=== PATIENT | female | born 1965 | race Caucasian/White ===

== ENCOUNTER 2018-03-25 04:44 | Inpatient (IN) ==
--- NOTE | 2018-03-25 05:09 | ED ---
HPI General Chief complaint: Psychiatric Symptoms Stated complaint: psych screen/POPD Time Seen by Provider: 03/25/18 05:08 History of Present Illness HPI narrative: 52-year-old female presents under Koehler act initiated by the [employer] per the patient reports that she has been feeling depressed and suicidal for "a while" things have been exacerbated by a life stressors. Tonight she was apparently sending test messages to someone saying that she was suicidal. Symptoms are moderate, aggravated by life stressors with no relieving factors. Denies drug or alcohol use, homicidal ideation. She denies doing anything herself today. She reports that she follows with a psychiatrist in [facility]. She has no other complaints. Related Data Home Medications Medication Instructions Recorded Confirmed bupropion HCl [Wellbutrin SR] 300 mg PO DAILY 03/25/18 03/25/18 clonazepam 1 mg PO TID 03/25/18 03/25/18 hydromorphone [Dilaudid] 4 mg PO Q6H PRN 03/25/18 03/25/18 lithium carbonate 100 mg PO QID 03/25/18 03/25/18 quetiapine [Seroquel XR] 150 mg PO HS 03/25/18 03/25/18 Allergies Allergy/AdvReac Type Severity Reaction Status Date / Time *MDRO Multi-Drug Resistant Allergy Unknown Uncoded 07/04/16 12:06 Organism Review of Systems Except as stated in HPI: all other systems reviewed are negative PMFSH Medical History Medical History Chest pain (Acute) Social History Social History Smoking Status: Former smoker Tobacco Type: Cigarettes How Often Do You Have a Drink Containing Alcohol: Monthly or less Recent Travel in [facility] within the Last 8 Weeks: No Recent Out of Country Travel within the Last 8 Weeks: No Exam Narrative Exam Narrative: GENERAL: Well-developed well-nourished female no acute distress SKIN: Warm and dry. HEAD: Atraumatic. Normocephalic. EYES: Pupils equal and round. No scleral icterus. No injection or drainage. ENT: No nasal bleeding or discharge. Mucous membranes pink and moist. NECK: Trachea midline. No JVD. CARDIOVASCULAR: Regular rate and rhythm. No murmur appreciated. RESPIRATORY: No accessory muscle use. Clear to auscultation. Breath sounds equal bilaterally. GASTROINTESTINAL: Abdomen soft, non-tender, nondistended. Hepatic and splenic margins not palpable. MUSCULOSKELETAL: No obvious deformities. No clubbing. No cyanosis. No edema. NEUROLOGICAL: Awake and alert. No obvious cranial nerve deficits. Motor grossly within normal limits. Normal speech. PSYCHIATRIC: Depressed mood; insight and judgment normal. Medical Decision Making MDM Narrative Medical decision making narrative: Mental health screening discussed with the patient. Psychiatric screen ordered. Drug screen is positive for benzodiazepines, the patient is prescribed Klonopin. Otherwise her lab work is unremarkable. She is medically cleared for psychiatric disposition. Differential Diagnosis Differential Diagnosis: Adjustment reaction, substance-induced mood disorder, major depressive disorder, depressive disorder not otherwise specified, bipolar disorder, schizophrenia Lab Data Result diagrams: 03/25/18 05:00 03/25/18 05:00 Lab Results 03/25/18 03/25/18 03/25/18 Range/Units 05:00 05:00 05:00 Sodium 142 (136-145) meq/L Potassium 4.3 (3.5-5.1) meq/L Chloride 110 H (98-107) meq/L Carbon Dioxide 26.8 (21.0-32.0) meq/L Anion Gap 5 (5-15) meq/L BUN 9 (7-18) mg/dL Creatinine 1.21 H (0.50-1.00) mg/dL Estimated GFR 47 L (>89) mL/min Random Glucose 83 (74-106) mg/dL Calcium 8.4 L (8.5-10.1) mg/dL Total Bilirubin 0.4 (0.2-1.0) mg/dL AST 38 H (15-37) U/L ALT 36 (10-53) U/L Alkaline Phosphatase 89 (45-117) U/L Total Protein 8.5 H (6.4-8.2) g/dL Albumin 3.3 L (3.4-5.0) g/dL TSH 2.210 (0.358-3.740) uIU/mL Salicylates 2.6 L (2.8-20.0) mg/dL Urine Opiates Screen (Neg) Acetaminophen Less than 2.0 L (10.0-30.0) mcg/mL Ur Barbiturates Screen (Neg) Ur Amphetamines Screen (Neg) U Benzodiazepines Scrn (Neg) [place] Less than 0.1 L (0.5-1.5) meq/L Urine Cocaine Screen (Neg) U Cannabinoids Screen (Neg) Serum Alcohol Less than 3 (0-5) mg/dL 03/25/18 Range/Units 05:05 Sodium (136-145) meq/L Potassium (3.5-5.1) meq/L Chloride (98-107) meq/L Carbon Dioxide (21.0-32.0) meq/L Anion Gap (5-15) meq/L BUN (7-18) mg/dL Creatinine (0.50-1.00) mg/dL Estimated GFR (>89) mL/min Random Glucose (74-106) mg/dL Calcium (8.5-10.1) mg/dL Total Bilirubin (0.2-1.0) mg/dL AST (15-37) U/L ALT (10-53) U/L Alkaline Phosphatase (45-117) U/L Total Protein (6.4-8.2) g/dL Albumin (3.4-5.0) g/dL TSH (0.358-3.740) uIU/mL Salicylates (2.8-20.0) mg/dL Urine Opiates Screen Neg (Neg) Acetaminophen (10.0-30.0) mcg/mL Ur Barbiturates Screen Neg (Neg) Ur Amphetamines Screen Neg (Neg) U Benzodiazepines Scrn Pos H (Neg) [place] (0.5-1.5) meq/L Urine Cocaine Screen Neg (Neg) U Cannabinoids Screen Neg (Neg) Serum Alcohol (0-5) mg/dL Discharge Plan Discharge Disposition Patient Disposition: 30 Still Patient Discharge Condition Condition: Stable Discharge Details Diagnosis: Encounter for medical clearance for patient hold Physicians Team ED Provider: Olayinka Floyd ED Midlevel Provider: Luis Monge Primary Care Provider: Primary Care Giani,Isabel Rxs /Orders / Referrals /Forms Prescriptions: No Action lithium carbonate 150 mg Capsule 100 mg PO QID RF: 0 clonazepam 1 mg Tablet 1 mg PO TID RF: 0 bupropion HCl [Wellbutrin SR] 200 mg Tablet Extended Release 12 Hr 300 mg PO DAILY RF: 0 quetiapine [Seroquel XR] 150 mg Tablet Extended Release 24 Hr 150 mg PO HS RF: 0 hydromorphone [Dilaudid] 4 mg Tablet 4 mg PO Q6H PRN (Reason: Pain) RF: 0 Status ED Status: Medically Cleared
[2018-03-25 05:37] LABS: Amphetamine Screen,Urine Neg (Neg); Barbiturate Screen,Urine Neg (Neg); Cannabinoid Screen,Urine Neg (Neg); Cocaine Screen,Urine Neg (Neg)
[2018-03-25 05:46] LABS: Opiate Screen,Urine Neg (Neg)
[2018-03-25 05:55] LABS: Alkaline Phosphatase 89 U/L (45-117); Total Protein 8.5 g/dL (6.4-8.2)
[2018-03-25 05:59] LABS: Alanine Aminotransferase 36 U/L (10-53); Albumin 3.3 g/dL (3.4-5.0); Anion Gap 5 meq/L (5-15); Aspartate Aminotransferase 38 U/L (15-37); Blood Urea Nitrogen 9 mg/dL (7-18); Calcium 8.4 mg/dL (8.5-10.1); Carbon Dioxide 26.8 meq/L (21.0-32.0); Chloride 110 meq/L (98-107); Glomerular Filtration Rate 47 mL/min (>89); Glucose,Random 83 mg/dL (74-106); Sodium 142 meq/L (136-145)
[2018-03-25 06:06] LABS: Potassium 4.3 meq/L (3.5-5.1)
[2018-03-25 06:23] LABS: Baso # (Auto) 0.1 th/mm3 (0.0-0.2); Baso % (Auto) 0.6 % (0.0-2.0); Eos # (Auto) 0.1 th/mm3 (0.0-0.4); Eos % (Auto) 1.3 % (0.0-4.0); Hematocrit 46.2 % (35.0-46.0); Lymph # (Auto) 3.4 th/mm3 (1.0-4.8); Lymph % (Auto) 33.5 % (9.0-44.0); Mean Corpuscular HGB Conc 34.6 % (32.0-36.0); Mean Corpuscular Hemoglobin 31.6 pg (27.0-34.0); Mean Corpuscular Volume 91.1 fL (80.0-100.0); Mean Platelet Volume 8.5 fL (7.0-11.0); Mono # (Auto) 0.6 th/mm3 (0.0-0.9); Neut % (Auto) 58.6 % (16.0-70.0); Platelet Count 251 th/mm3 (150-450); Red Blood Count 5.07 mil/mm3 (4.00-5.30); Red Cell Distribution Width 13.9 % (11.6-17.2); White Blood Count 10.2 th/mm3 (4.0-11.0)
[2018-03-25] MEDS ORDERED: LORazepam 1 MG Tablet PO ONE (17:11)
--- NOTE | 2018-03-25 18:02 | ED ---
HPI - Psych - General Source: EMS Mode of arrival: EMS Limitations: no limitations - History of Present Illness MD complaint: suicidal ideation Duration: other (significant other committed suicide yesterday ) Relieving factors: none Exacerbating factors: none - General Chief Complaint: Psychiatric Symptoms Stated Complaint: psych screen/POPD Time Seen by Provider: 03/25/18 05:08 - History of Present Illness HPI Narrative: Patient is a 51-year-old female who is currently on disability, who presents to the emergency room under Sjapper act by [facility]. Koehler act states," Julee called the crisis hotline in has been engaging text messages since 0130 hrs. Julee showed me the text messages that was suicidal and nature stating that she had a plan that she wanted to ." Julee states, " my significant other of 12 years shot himself in the head yesterday, he had problems but I never thought he would take his life." She states that she wants to join him and she has the means to do. She will not contract for safety. 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 She worked for the [employer] for 17 years. She sustained a work injury causing her multiple surgeries to her right leg with 2 plates and 6 screws. In addition she has chronic back pain. Her past medical history includes a myocardial infarction, kidney injury which has been resolved, and orthopedic surgery to her right leg. She is and has 3 grown children. She has 2 girls ages 35 and 23 who both suffer from anxiety and bipolar. She also has a 21-year-old son, and 6 grandchildren. Her mother is and suffered from bipolar and addiction. Her father is and was an alcoholic. She has 2 sisters that are both addicts. Patient has been disabled for 10 years. Patient smokes 1 pack per day , no alcohol and no drugs. Psychiatric: Patient has been diagnosed with panic attacks, anxiety, P PTSD, and ADHD. She is followed by a local psychiatrist Dr. Almaraz. [facility]. She states that she is prescribed Klonopin, Wellbutrin, lithium, 4 mg of Dilaudid, Remeron, and Adderall. Her lithium level from labs drawn today was 0.1. Chart reviewed and discussed with nursing staff. Patient is in room J108 of the emergency department. Patient is in a hospital gown and looks dishevel. She is unconsolable. She is alert and oriented 4. Fund of knowledge is normal. Motor and gait is normal. No abnormal thoughts. Insight and judgment is poor. Remote and recent memory is intact. Speech is low and difficult to hear. Patient endorses suicidal plan. She states that she has the means to hurt herself and she wants to be with her significant other who shot himself in the head. Patient is at moderate risk for self-harm. Patient will not contract for safety. Patient feels that if she is discharged she will take her life. Will admit patient for further assessment and treatment. Dx: Severe Anxiety; Intent to commit suicide (Vivi Richards) - Related Data Home Medications Medication Instructions Recorded Confirmed bupropion HCl [Wellbutrin SR] 300 mg PO DAILY 03/25/18 03/25/18 clonazepam 1 mg PO TID 03/25/18 03/25/18 hydromorphone [Dilaudid] 4 mg PO Q6H PRN 03/25/18 03/25/18 lithium carbonate 100 mg PO QID 03/25/18 03/25/18 quetiapine [Seroquel XR] 150 mg PO HS 03/25/18 03/25/18 Allergies Allergy/AdvReac Type Severity Reaction Status Date / Time *MDRO Multi-Drug Resistant Allergy Unknown Uncoded 07/04/16 12:06 Organism Review of Systems All other systems reviewed negative except as stated in HPI [facility] - History History Provided By: Patient - Medical History Medical History: Medical History (Last Updated 03/25/18 @ 05:12 by Minnie Smiley) Chest pain - Tobacco History Tobacco Use In Past 30 Days: Yes Smoking Status: Refused to answer Tobacco Type: Cigarettes - Alcohol History How Often Do You Have a Drink Containing Alcohol: Unable to Obtain - Substance Use History Substance History: No History of Abuse - Travel History Recent Travel in the [place] Within the Last 8 Weeks: No Recent Travel Out of the Country Within the Last 8 Weeks: No - Immunization History Tetanus Immunization: Unable to Assess Hx Influenza Vaccine This Season: No Psychiatric History - Psychiatric History Psychiatric Treatment History: History of Psychiatric Treatment - Psychiatric History Patient has been under the care of psychiatrist Dr. Rufina macdonald and at the [facility] for psychiatry. She has been diagnosed with PTSD, panic, anxiety, and ADHD. (Vivi Richards) Physical Exam - General Limitations: no limitations General appearance: alert - Head Head exam: atraumatic - Eye Eye exam: Present: normal appearance - ENT ENT exam: Present: normal exam Mental Status Examination Appearance: Disheveled Consciousness: Alert, Other (Unconsolable) Orientation: x4 Motor Activity: Normal gait Speech: Other (Low in tone and volume) Language: Adequate Fund of Knowledge: Adequate Attention and Concentration: Easily distracted Memory: Unremarkable Mood: Sad Affect: Flat, Blunt Thought Process & Associations: Intact Thought Content: Appropriate Hallucination Type: None Delusion Type: None Suicidal Ideation: Yes Suicidal Plan: Yes (Patient significant other committed suicide yesterday by gunshot wound to the head. Patient states that she has the means to take her life.) Suicidal Intention: Yes Homicidal Ideation: No Homicidal Plan: No Homicidal Intention: No Insight: Adequate Judgment: Adequate Initial Documented Vital Signs Temperature 98.4 F 03/25/18 08:20 Pulse Rate 63 03/25/18 08:20 Respiratory Rate 16 03/25/18 08:20 Blood Pressure 137/84 03/25/18 08:20 Pulse Oximetry 98 03/25/18 08:20 Last Documented Vital Signs Temperature 98.4 F 03/25/18 08:20 Pulse Rate 84 03/25/18 15:49 Respiratory Rate 18 03/25/18 15:49 Blood Pressure 141/78 H 03/25/18 15:49 Pulse Oximetry 99 03/25/18 15:49 [facility] - Psych - Diagnosis (1) Severe anxiety Status: Acute (2) Has access to planned means of suicide Status: Acute - Differential Diagnosis Likely: acute anxiety - Medical Records Attestation: I reviewed the patient's medical records. - Lab Data Attestation: I reviewed the patient's lab results. Result diagrams: 03/25/18 05:51 03/25/18 05:00 - 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 Yesterday her significant other of 12 years committed suicide by shooting himself in the head. Patient called the crisis hotline and followed by multiple text messages stating that she was going to take her life. She has a long history of anxiety, panic disorder, PTSD, and ADHD. She is unconsolable in the emergency department. Patient is unwilling to contract for safety. Patient is at moderate risk for self-harm. She endorses plan to do self-harm. Based on the patient's presentation will admit her for further observation and treatment. (Vivi Richards) - Lab Data Lab Results 03/25/18 03/25/18 03/25/18 Range/Units 05:00 05:00 05:00 WBC (4.0-11.0) th/mm3 RBC (4.00-5.30) mil/mm3 Hgb (11.6-15.3) gm/dL Hct (35.0-46.0) % MCV (80.0-100.0) fL MCH (27.0-34.0) pg MCHC (32.0-36.0) % RDW (11.6-17.2) % Plt Count (150-450) th/mm3 MPV (7.0-11.0) fL Neut % (Auto) (16.0-70.0) % Lymph % (Auto) (9.0-44.0) % Emanuel % (Auto) (0.0-8.0) % Eos % (Auto) (0.0-4.0) % Baso % (Auto) (0.0-2.0) % Neut # (Auto) (1.8-7.7) th/mm3 Lymph # (Auto) (1.0-4.8) th/mm3 Emanuel # (Auto) (0.0-0.9) th/mm3 Eos # (Auto) (0.0-0.4) th/mm3 Baso # (Auto) (0.0-0.2) th/mm3 WBC Differential Differential Comment Sodium 142 (136-145) meq/L Potassium 4.3 (3.5-5.1) meq/L Chloride 110 H (98-107) meq/L Carbon Dioxide 26.8 (21.0-32.0) meq/L Anion Gap 5 (5-15) meq/L BUN 9 (7-18) mg/dL Creatinine 1.21 H (0.50-1.00) mg/dL Estimated GFR 47 L (>89) mL/min Random Glucose 83 (74-106) mg/dL Calcium 8.4 L (8.5-10.1) mg/dL Total Bilirubin 0.4 (0.2-1.0) mg/dL AST 38 H (15-37) U/L ALT 36 (10-53) U/L Alkaline Phosphatase 89 (45-117) U/L Total Protein 8.5 H (6.4-8.2) g/dL Albumin 3.3 L (3.4-5.0) g/dL TSH 2.210 (0.358-3.740) uIU/mL Salicylates 2.6 L (2.8-20.0) mg/dL Urine Opiates Screen (Neg) Acetaminophen Less than 2.0 L (10.0-30.0) mcg/mL Ur Barbiturates Screen (Neg) Ur Amphetamines Screen (Neg) U Benzodiazepines Scrn (Neg) [place] Less than 0.1 L (0.5-1.5) meq/L Urine Cocaine Screen (Neg) U Cannabinoids Screen (Neg) Serum Alcohol Less than 3 (0-5) mg/dL 03/25/18 03/25/18 Range/Units 05:05 05:51 WBC 10.2 (4.0-11.0) th/mm3 RBC 5.07 (4.00-5.30) mil/mm3 Hgb 16.0 H (11.6-15.3) gm/dL Hct 46.2 H (35.0-46.0) % MCV 91.1 (80.0-100.0) fL MCH 31.6 (27.0-34.0) pg MCHC 34.6 (32.0-36.0) % RDW 13.9 (11.6-17.2) % Plt Count 251 (150-450) th/mm3 MPV 8.5 (7.0-11.0) fL Neut % (Auto) 58.6 (16.0-70.0) % Lymph % (Auto) 33.5 (9.0-44.0) % Emanuel % (Auto) 6.0 (0.0-8.0) % Eos % (Auto) 1.3 (0.0-4.0) % Baso % (Auto) 0.6 (0.0-2.0) % Neut # (Auto) 6.0 (1.8-7.7) th/mm3 Lymph # (Auto) 3.4 (1.0-4.8) th/mm3 Emanuel # (Auto) 0.6 (0.0-0.9) th/mm3 Eos # (Auto) 0.1 (0.0-0.4) th/mm3 Baso # (Auto) 0.1 (0.0-0.2) th/mm3 WBC Differential . Differential Comment Auto diff final Sodium (136-145) meq/L Potassium (3.5-5.1) meq/L Chloride (98-107) meq/L Carbon Dioxide (21.0-32.0) meq/L Anion Gap (5-15) meq/L BUN (7-18) mg/dL Creatinine (0.50-1.00) mg/dL Estimated GFR (>89) mL/min Random Glucose (74-106) mg/dL Calcium (8.5-10.1) mg/dL Total Bilirubin (0.2-1.0) mg/dL AST (15-37) U/L ALT (10-53) U/L Alkaline Phosphatase (45-117) U/L Total Protein (6.4-8.2) g/dL Albumin (3.4-5.0) g/dL TSH (0.358-3.740) uIU/mL Salicylates (2.8-20.0) mg/dL Urine Opiates Screen Neg (Neg) Acetaminophen (10.0-30.0) mcg/mL Ur Barbiturates Screen Neg (Neg) Ur Amphetamines Screen Neg (Neg) U Benzodiazepines Scrn Pos H (Neg) [place] (0.5-1.5) meq/L Urine Cocaine Screen Neg (Neg) U Cannabinoids Screen Neg (Neg) Serum Alcohol (0-5) mg/dL
[2018-03-25] MEDS ORDERED: Bisacodyl 10 MG Supp RECTAL PRN (18:06)
[2018-03-25] MEDS ORDERED: Mirtazapine 15 MG Tablet PO SCH (21:00)
[2018-03-25] MEDS ORDERED: clonazePAM 1 MG Tablet PO SCH (21:00)
[2018-03-26] MEDS: Senna/Docusate Sodium 8.6/50 MG Tablet PO SCH ×2 (05:28→09:44)
[2018-03-26] MEDS ORDERED: buPROPion 150 MG 12 HR Tablet PO SCH (09:00)
--- NOTE | 2018-03-26 11:01 | P.HPPSY ---
Provisional Diagnosis Admission Date: March 25, 2018 18:06 Ferguson I.: 1. Bipolar disorder, depressed, moderate 2. Rule out benzodiazepine misuse Ferguson II.: 1. Cluster B personality traits Competence Certification of Person's Competence To Provide Express and Informed Consent I have personally examined Julee Alaniz, a person being served at [facility] on, March 26, 2018 1100. Express and informed consent means consent voluntarily given in writing, by a competent person, after sufficient explanation and disclosure of the subject matter involved to enable the person to make a knowing and willful decision without any element of force, fraud, deceit, duress, or other form of constraint or coercion. This person is 18 years of age or older, is not now known to be incompetent to consent to treatment with a guardian advocate, and does not have a health care surrogate or proxy currently making medical treatment decisions. I have found this person to be one of the following: [X] Competent to provide express and informed consent, as defined above, for voluntary admission to this facility and is competent to provide express and informed consent for treatment. He/she has the consistent capacity to make well reasoned, willful, and knowing decisions concerning his or her medical or mental health treatment. The person fully and consistently understands the purpose of the admission for examination/placement and is fully capable of personally exercising all rights assured under [place] [] Incompetent to provide express and informed consent to voluntary admission, and this is incompetent to provide express and informed consent to treatment. The person must be transferred to involuntary status and a petition for a guardian advocate filed with the Circuit Court. [] Refusing to provide express and informed consent to voluntary admission but is competent to provide express and informed consent for treatment. The person must be discharged or transferred to involuntary status. Form shall be completed within 24 hours of a person's arrival at the receiving facility and filed in the clinical record of each person: 1. Admitted on a voluntary basis 2. Permitted to provide express and informed consent to his/her own treatment 3. Allowed to transfer from involuntary to voluntary status 4. Prior to permitting a person to consent to his or her own treatment after having been previously found incompetent to consent to treatment. History of Present Illness Capacity: Has capacity Chief Complaint: Depression, suicidal ideation History of Present Illness: Ms. Friend is a 52-year-old female with a reported history of anxiety, depression, PTSD, ADHD, bipolar disorder who presents under a Koehler act by [employer] alleging that the patient sent text messages of a suicidal nature. Patient was seen by the psychiatric nurse practitioner in the ED. Reviewing the electronic medical record, I see no previous psychiatric contact within our system. Patient seen and examined with nurse, Kasi. Chart reviewed. Case discussed with nursing staff. Per nursing staff, the patient was quite agitated and threatening to armando overnight because she did not receive her reported home dose of Klonopin 1mg TID. I have reviewed the [facility] database, and I note that the patient has been receiving Klonopin 1mg BID. On my examination today, patient starts off our conversation by saying that she gets Klonopin 1mg TID. When I indicate that I have consulted the controlled substances database, she quickly changes her narrative and agrees that she has been taking Klonopin 1mg BID. She denies overuse of this medication. She reports that she has been feeling depressed for several days with suicidal ideation to either overdose or shoot herself with a gun. She says that she has purposely had her firearms removed from the home and also has removed her medications. She notes that she has been off of her psychotropic medications for several weeks. She says that the lithium in particular was problematic because she believes that it was causing weight gain and thyroid abnormalities. She remains depressed now and endorses ongoing suicidal ideations saying that she has "different plans. There is 1,000,001 ways to ." She contracts for safety on the inpatient unit however. She endorses some hopeless and worthless feelings. She does report a significant trauma history and reports that she has heard her name being called in the past and also experiences traumatic nightmares and hypervigilance. No audiovisual hallucinations. No delusions. No hypomanic or manic symptoms presently. Patient does report that she has panic symptoms "all the time" including dyspnea, feeling like she is having a heart attack and feeling like she is going to . She does not presently appear at all anxious. Cluster B personality traits are noted. Remainder of the psychiatric ROS is negative. No acute physical complaints. Past psychiatric history: The patient reports previous diagnoses as noted above. She has been seeing Dr. Shah for several months. She denies any history of psychiatric admissions. Denies any history of suicide attempts. Denies any history of nonsuicidal self-injurious behavior. Denies any history of violent behavior. Family history: The patient reports a family history of anxiety disorder, bipolar disorder and depression. She reports that 2 members of her family have completed suicide. Chemical dependency history: The patient denies any abuse of drugs or alcohol. Social history: The patient reports that she lives alone. She has 3 grown children. She has 6 grandchildren. She is . 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 She denies any legal issues herself. Denies any access to guns or firearms at the present time. She endorses a history of childhood, and police trauma. She endorses yazdanism beliefs. Past medical history: The patient denies any ongoing medical issues. - Inpatient Certification I certify that the inpatient services were ordered in accordance with Medicare regulations governing the order. This includes certification that hospital inpatient services are reasonable and necessary and in the case of services not specified as inpatient-only under 42 CFR 419.22(n), that they are appropriately provided as inpatient services in accordance to with the 2-midnight benchmark under 43 CFR 412.3(e) I certify that inpatient psychiatric hospital services are medically necessary. Evaluation and treatment and/or diagnostic testing are expected to improve the patient's condition. The patient needs on a daily basis, active treatment furnished directly by or requiring the supervision of inpatient psychiatric facility personnel. Estimated Total Length of Stay (Days): 5 Plans for Post Hospital Care: Home Review of Systems All other systems reviewed negative except as stated in HPI [facility] - History History Provided By: Patient, Medical Record - Medical History Medical History: Medical History (Last Updated 03/25/18 @ 05:12 by Minnie Smiley) Chest pain - Tobacco History Second Hand Smoke Exposure: Yes Tobacco Use In Past 30 Days: Yes (PPD) Smoking Status: Current every day smoker Tobacco Type: Cigarettes - Alcohol History How Often Do You Have a Drink Containing Alcohol: Never - Substance Use History Substance History: Past History - Travel History Recent Travel in the [facility] Within the Last 8 Weeks: No Recent Travel Out of the Country Within the Last 8 Weeks: No - Immunization History Tetanus Immunization: <5 Years Hx Influenza Vaccine This Season: Yes Quality Measures - Patient Strengths Patient's strengths (minimum of 2): In a monitored setting. Verbally fluent. Medications and Allergies Active Medications: Active Medications Al Hydrox/Mg Hydrox/Simethicone (Mag-Al Plus Susp Liq) 30 ml PO Q6H PRN PRN Reason: DYSPEPSIA Al Hydroxide/Mg Hydroxide (Milk Of Magnesia Liq) 30 ml PO Q12H PRN PRN Reason: Mild Constipation Bisacodyl (Dulcolax Supp) 10 mg RECTAL DAILY PRN PRN Reason: SEVERE CONSITIPATION Bupropion HCl (Wellbutrin Sr) 300 mg PO DAILY [facility] Last Admin: 03/26/18 09:44 Dose: 300 mg Clonazepam (Klonopin) 1 mg PO [facility] Last Admin: 03/25/18 21:46 Dose: 1 mg Lactulose (Lactulose Liq) 30 ml PO DAILY PRN PRN Reason: SEVERE CONSITIPATION Emery Carbonate (Emery Carbonate) 300 mg PO DAILY [facility] Last Admin: 03/26/18 09:44 Dose: 300 mg Mirtazapine (Remeron) 15 mg PO [facility] Last Admin: 03/25/18 21:46 Dose: 15 mg Senna/Docusate Sodium (Kym-Colace) 1 tab PO BID [facility] Last Admin: 03/26/18 09:44 Dose: Not Given Sennosides (Senokot) 17.2 mg PO Q12H PRN PRN Reason: Moderate Constipation Allergies Allergy/AdvReac Type Severity Reaction Status Date / Time *MDRO Multi-Drug Resistant Allergy Unknown Uncoded 07/04/16 12:06 Organism Home Medications Medication Instructions Recorded Confirmed Type bupropion HCl [Wellbutrin SR] 300 mg PO DAILY 03/25/18 03/25/18 History clonazepam 1 mg PO TID 03/25/18 03/25/18 History hydromorphone [Dilaudid] 4 mg PO Q6H PRN 03/25/18 03/25/18 History lithium carbonate 100 mg PO QID 03/25/18 03/25/18 History quetiapine [Seroquel XR] 150 mg PO HS 03/25/18 03/25/18 History Results - Labs CBC & Chem 7: 03/25/18 05:51 03/26/18 11:03 Labs: Laboratories reviewed. Mild AST elevation noted. Decreased GFR noted. Emery level noted. Toxicology positive for benzos. Exam Vital signs: Vital Signs 03/25/18 15:49 03/26/18 04:49 03/26/18 06:05 Temperature 98.3 F 98.6 F Pulse Rate 84 86 74 Respiratory Rate 18 18 16 Blood Pressure 141/78 H 150/76 H 113/60 Pulse Oximetry 99 99 Intake & Output 03/25/18 03/26/18 03/26/18 18:59 06:59 18:59 Intake Total 360 / 360 Balance 360 / 360 Weight 198.66 kg Intake: Oral 360 / 360 Other: Weight On Admission 90.3 kg Narrative: Physical exam completed by ED provider. On my examination today, the patient appears to be in no acute physical distress. No motor abnormalities noted. No signs of intoxication or withdrawal noted. Labs and vital signs reviewed. Mental Status Examination Appearance: Appropriate Consciousness: Alert Orientation: x4 Motor Activity: Other (No motor abnormalities noted) Speech: Unremarkable Language: Adequate Fund of Knowledge: Adequate Attention and Concentration: Adequate Memory: Unremarkable (Grossly intact on clinical exam) Mood: Sad, Anxious Affect: Other (Dysphoric. Does not appear at all anxious.) Thought Process & Associations: Intact, Logical, Linear Thought Content: Appropriate Hallucination Type: None Delusion Type: None Suicidal Ideation: Yes Suicidal Plan: Yes Suicidal Intention: No Homicidal Ideation: No Homicidal Plan: No Homicidal Intention: No Insight: Fair Judgment: Impulsive Assessment and Plan - Assessment (1) Bipolar affective disorder, depressed, moderate Code(s): F31.32 - Bipolar disorder, current episode depressed, moderate Status : Acute - Plan Plan: 52-year-old female with psychiatric history as detailed above who presents under a Koehler act. I do suspect there may be a component of cluster B personality style in the present case, and also behavior has been somewhat concerning for possible benzodiazepine misuse. I will stick with the dose of Klonopin indicated by her controlled substances database report. Patient does report a history of mood instability in the past, and overall picture is most consistent with a bipolar disorder. Patient reports extensive previous medication trials. She has never tried Latuda for bipolar depression. I will plan to admit the patient to the inpatient psychiatric unit for safety, observation and stabilization. Admit inpatient. Voluntary status. Initiate Latuda 40 mg daily with dinner for probable bipolar depression. Check EKG for QTC. I will continue the patient's Klonopin 1 mg twice daily (E-FORCSE reviewed). Patient has no other controlled substances on the controlled substances database report, and so no other controlled medications will be prescribed unless clearly indicated. Patient wishes to continue the Wellbutrin for mood, but I have cautioned her regarding induction of reji with antidepressants. No reported history of seizures or eating disorder. Discontinue other psychotropics, namely the lithium. Benadryl as needed for sleep. R/B/A for medications discussed with patient. Vitals every shift. Counselor to see. Collateral information. Disposition planning. Estimated length of stay: 5-7 days. Justification for Continued Inpatient Stay: Monitoring for impairment in safety. Discharge Planning: Pending psychiatric stabilization. Request Healthcare Surrogate/Guardian Advocate?: No
[2018-03-26 11:47] LABS: HDL Cholesterol 29.3 mg/dL (40.0-60.0)
[2018-03-26 11:54] LABS: Calcium 8.6 mg/dL (8.5-10.1); Carbon Dioxide 28.6 meq/L (21.0-32.0); Chol/HDL Ratio 5.9 Ratio; Potassium 4.2 meq/L (3.5-5.1)
[2018-03-26] MEDS: clonazePAM 1 MG Tablet PO SCH ×2 (11:59→20:23)
[2018-03-27] MEDS: Acetaminophen 325 MG Tablet PO PRN (10:13)
[2018-03-27] MEDS: buPROPion 150 MG XL 24 HR Tablet PO SCH (10:16)
[2018-03-27] MEDS: clonazePAM 1 MG Tablet PO SCH ×2 (10:16→20:14)
--- NOTE | 2018-03-27 12:47 | P.PNPSY ---
Subjective Chief Complaint: Depression, suicidal ideation Remarks: Reviewed electronic medical records and discussed case with staff. Follow-up was conducted in patient's room with nurse present. Nurse reports that patient has been seclusive with a flat affect staying in bed. Patient reports that she had difficulty sleeping and has not had an appetite. She is complaining of a headache currently for which she was given medication little earlier. Her mood is sad as is her affect. Mental Status Examination Appearance: Appropriate Consciousness: Alert Orientation: x4 Motor Activity: Other (No motor abnormalities noted) Speech: Unremarkable Language: Adequate Fund of Knowledge: Adequate Attention and Concentration: Adequate Memory: Unremarkable (Grossly intact on clinical exam) Mood: Sad, Anxious Affect: Other (Dysphoric. Does not appear at all anxious.) Thought Process & Associations: Intact, Logical, Linear Thought Content: Appropriate Hallucination Type: None Delusion Type: None Suicidal Ideation: Yes Suicidal Plan: Yes Suicidal Intention: No Homicidal Ideation: No Homicidal Plan: No Homicidal Intention: No Insight: Fair Judgment: Impulsive Assessment and Plan - Assessment (1) Bipolar affective disorder, depressed, moderate Code(s): F31.32 - Bipolar disorder, current episode depressed, moderate Status : Acute - Plan Plan: Patient will be reevaluated tomorrow by the attending psychiatrist. Continue with current treatment plan. Justification for Continued Inpatient Stay: Moving this patient to a less restrictive environment would likely result in decompensation. Patient remains extremely depressed and seclusive. Request Healthcare Surrogate/Guardian Advocate?: No
--- NOTE | 2018-03-27 15:28 | ECG ---
Date Performed: 03/26/2018 Time Performed: 13:26:38 PTAGE: 52 years EKG: Sinus rhythm INCOMPLETE RIGHT BUNDLE BRANCH BLOCK BORDERLINE ECG Since PREVIOUS TRACING , no significant change noted PREVIOUS TRACIN07/04/2016 12.09 DOCTOR: Layo Somers Interpretating Date/Time 03/27/2018 15:27:57
[2018-03-27] MEDS: Aluminum/Magnesium/Simethacone Susp 30 ML UDC PO PRN (17:59)
[2018-03-28] MEDS: clonazePAM 1 MG Tablet PO SCH ×2 (09:13→21:34)
[2018-03-28] MEDS: buPROPion 150 MG XL 24 HR Tablet PO SCH ×2 (09:13→16:36)
[2018-03-28] MEDS: clonazePAM 0.5 MG Tablet PO SCH (15:21)
--- NOTE | 2018-03-28 17:44 | P.PNPSY ---
Subjective Chief Complaint: Depression, suicidal ideation Remarks: Patient seen for follow-up, chart reviewed. Discussion with nursing staff reported that the patient has been pleasant, anxious, disturbed sleep mostly seclusive to her room. Patient was found lying hospital bed somewhat disheveled noted B, cooperative. Patient states that she had difficulty sleeping last evening with occasional nightmares that she relates to her history of PTSD. Patient reports having had multiple trials with different hypnotics which have had limited or no response to. Patient states her mood is "anxious still" along with feeling depressed but denying any suicide ideations today. Patient reports having interest in engaging in outpatient individual therapy as she has history of therapy in the past but has not been able to locate one year therapy in the past but has not been able to locate one year in this area. Patient denies any perceptual disturbances or delusions at this time. Patient was encouraged to participate in groups and activities which would assist to decrease her anxiety, she agreed. Review of Systems All other systems reviewed negative except as stated in HPI Mental Status Examination Appearance: Appropriate Consciousness: Alert Orientation: x4 Motor Activity: Other (No motor abnormalities noted) Speech: Unremarkable Language: Adequate Fund of Knowledge: Adequate Attention and Concentration: Adequate Memory: Unremarkable (Grossly intact on clinical exam) Mood: Sad, Anxious Affect: Sad Thought Process & Associations: Intact, Logical, Linear Thought Content: Appropriate Hallucination Type: None Delusion Type: None Suicidal Ideation: No Suicidal Plan: No Suicidal Intention: No Homicidal Ideation: No Homicidal Plan: No Homicidal Intention: No Insight: Fair Judgment: Impulsive Assessment and Plan - Assessment (1) Bipolar affective disorder, depressed, moderate Code(s): F31.32 - Bipolar disorder, current episode depressed, moderate Status : Acute - Plan Plan: Patient this time reporting anxiety throughout the day along with continued depression and disturbed sleep. We will increase Wellbutrin to 300 mg p.o. daily, increase clonazepam to 1 mg a.m./0.5 mg p.m./1 mg at bedtime, and will start zolpidem 5 mg p.o. at bedtime for sleep disturbance. We will continue to monitor mood and behavior. Discharge planning in progress. Justification for Continued Inpatient Stay: At risk for further decompensation if at lower level of care. Request Healthcare Surrogate/Guardian Advocate?: No
[2018-03-28] MEDS ORDERED: Zolpidem Tartrate 5 MG Tablet PO SCH (21:00)
[2018-03-29] MEDS: clonazePAM 1 MG Tablet PO SCH ×2 (09:25→21:05)
[2018-03-29] MEDS: buPROPion 150 MG XL 24 HR Tablet PO SCH (09:25)
[2018-03-29] MEDS: clonazePAM 0.5 MG Tablet PO SCH (15:46)
--- NOTE | 2018-03-29 18:05 | P.PNPSY ---
Subjective Chief Complaint: Depression, suicidal ideation Remarks: Patient seen for follow, chart reviewed. Discussion nursing staff reported the patient continues to be seclusive during the day, reported having poor sleep this evening. Patient was found asleep upon entering room this morning, interviewed with nurse and medical students. Patient states that she continues to feel depressed but less than upon admission, feeling less anxious with the addition of afternoon dose of clonazepam, reports having no suicide ideations at this time last time being a couple of days ago. Patient states having spoken to her children since her admission which has gone well and feels supported. Patient continues to have poor sleep stating that the Ambien did not really help last night and was up in the evening speaking with staff. Patient was reminded of the importance of sleep hygiene as well as not being in the room during the day and napping as this will also make it difficult for patient to sleep in the evening which she acknowledged and states she would try to participate in groups and activities and remained awake during the day. Review of Systems All other systems reviewed negative except as stated in HPI Mental Status Examination Appearance: Appropriate Consciousness: Alert Orientation: x4 Motor Activity: Other (No motor abnormalities noted) Speech: Unremarkable Language: Adequate Fund of Knowledge: Adequate Attention and Concentration: Adequate Memory: Unremarkable (Grossly intact on clinical exam) Mood: Sad (Lessening), Anxious (Lessening) Affect: Sad Thought Process & Associations: Intact, Logical, Linear Thought Content: Appropriate Hallucination Type: None Delusion Type: None Suicidal Ideation: No Suicidal Plan: No Suicidal Intention: No Homicidal Ideation: No Homicidal Plan: No Homicidal Intention: No Insight: Fair Judgment: Impulsive Assessment and Plan - Assessment (1) Bipolar affective disorder, depressed, moderate Code(s): F31.32 - Bipolar disorder, current episode depressed, moderate Status : Acute - Plan Plan: Patient this time reports feeling less depressed, less anxiety, continues to have difficulty with sleep. We will increase zolpidem to 10 mg p.o. at bedtime for sleep disturbance, we will continue to remind patient importance of sleep hygiene while on the unit. We will continue to monitor mood and behavior. We will continue rest of medications. Discharge planning a progress. Justification for Continued Inpatient Stay: At risk for further decompensation if at lower level of care Request Healthcare Surrogate/Guardian Advocate?: No
[2018-03-29] MEDS: Zolpidem Tartrate 5 MG Tablet PO SCH (21:05)
[2018-03-30] MEDS: clonazePAM 1 MG Tablet PO SCH ×2 (09:35→21:10)
[2018-03-30] MEDS: buPROPion 150 MG XL 24 HR Tablet PO SCH (09:35)
--- NOTE | 2018-03-30 13:29 | P.PNPSY ---
Subjective Chief Complaint: Depression, suicidal ideation Remarks: Patient seen for follow, chart reviewed. Discussion nursing staff reported the patient slept more less evening, continue to be seclusive in her room but did not attend some groups yesterday and denying any suicide ideations. Patient was found lying hospital bed noted B, cooperative. Patient states that she slept about 3 hours with the zolpidem less evening and feels that it is somewhat improved but continues to feel depressed along with continued anxiety. Patient was encouraged to participate more groups and activities, be more visible on the unit and being less seclusive which she agreed. Patient denies any suicide ideations today and agreed to have family come visit her during visiting hours today. Review of Systems All other systems reviewed negative except as stated in HPI Mental Status Examination Appearance: Appropriate Consciousness: Alert Orientation: x4 Motor Activity: Other (No motor abnormalities noted) Speech: Unremarkable Language: Adequate Fund of Knowledge: Adequate Attention and Concentration: Adequate Memory: Unremarkable (Grossly intact on clinical exam) Mood: Sad (Lessening), Anxious (Lessening) Affect: Sad, Other (Tearful) Thought Process & Associations: Intact, Logical, Linear Thought Content: Appropriate Hallucination Type: None Delusion Type: None Suicidal Ideation: No Suicidal Plan: No Suicidal Intention: No Homicidal Ideation: No Homicidal Plan: No Homicidal Intention: No Insight: Fair Judgment: Impulsive Assessment and Plan - Assessment (1) Bipolar affective disorder, depressed, moderate Code(s): F31.32 - Bipolar disorder, current episode depressed, moderate Status : Acute - Plan Plan: Patient continues report depressed mood but denying any suicide ideations today. Patient also continue with the anxiety but appears to be less than initial presentation. We will continue current treatment. We will continue to monitor mood and behavior. Patient was encouraged to participate more in groups and activities as well as to allow family to come visit her. We will confirm with patient's son that he had removed all firearms from her home. Discharge planning in progress. Justification for Continued Inpatient Stay: At risk for further decompensation if at lower level of care Request Healthcare Surrogate/Guardian Advocate?: No
[2018-03-30] MEDS: clonazePAM 0.5 MG Tablet PO SCH (16:27)
[2018-03-30] MEDS: Zolpidem Tartrate 5 MG Tablet PO SCH (21:10)
[2018-03-31] MEDS: clonazePAM 1 MG Tablet PO SCH ×2 (09:29→21:02)
[2018-03-31] MEDS: buPROPion 150 MG XL 24 HR Tablet PO SCH (09:29)
--- NOTE | 2018-03-31 15:11 | P.PNPSY ---
Subjective Chief Complaint: Depression, suicidal ideation Remarks: Patient seen for follow-up, chart reviewed. Discussion with nursing staff reported that the patient reported that the Ambien was not helpful less evening , denying suicide ideations. Patient was found sitting hospital bed noted B, cooperative. Patient mentions that she continues to feel depressed and anxious and that the Ambien did not help with her sleep last evening. Patient mentions that she had been visited by her daughter less evening which went well and that she is considering staying with her children after discharge for several days for support. Patient continues to report depressed mood but denying any suicide ideations at this time. Review of Systems All other systems reviewed negative except as stated in HPI Mental Status Examination Appearance: Appropriate Consciousness: Alert Orientation: x4 Motor Activity: Other (No motor abnormalities noted) Speech: Unremarkable Language: Adequate Fund of Knowledge: Adequate Attention and Concentration: Adequate Memory: Unremarkable (Grossly intact on clinical exam) Mood: Sad (Lessening), Anxious (Lessening) Affect: Sad Thought Process & Associations: Intact, Logical, Linear Thought Content: Appropriate Hallucination Type: None Delusion Type: None Suicidal Ideation: No Suicidal Plan: No Suicidal Intention: No Homicidal Ideation: No Homicidal Plan: No Homicidal Intention: No Insight: Fair Judgment: Impulsive Assessment and Plan - Assessment (1) Bipolar affective disorder, depressed, moderate Code(s): F31.32 - Bipolar disorder, current episode depressed, moderate Status : Acute - Plan Plan: Patient this time continues report depressed mood and anxiety along with difficulty with sleep. Will add mirtazapine 50 mg p.o. at bedtime for depression and sleep disturbance, will increase lurasidone to 60 mg p.o. daily for depression. We will continue to monitor mood and behavior. Discharge planning in progress. Justification for Continued Inpatient Stay: At risk for further decompensation if at lower level of care. Request Healthcare Surrogate/Guardian Advocate?: No
[2018-03-31] MEDS: clonazePAM 0.5 MG Tablet PO SCH (15:51)
[2018-03-31] MEDS: Mirtazapine 15 MG Tablet PO SCH (21:02)
[2018-03-31] MEDS: Acetaminophen 325 MG Tablet PO PRN (21:55)
[2018-04-01] MEDS: buPROPion 150 MG XL 24 HR Tablet PO SCH (11:09)
[2018-04-01] MEDS: clonazePAM 1 MG Tablet PO SCH ×2 (11:10→21:09)
--- NOTE | 2018-04-01 14:45 | P.PNPSY ---
Subjective Chief Complaint: Depression, suicidal ideation Remarks: Patient seen and deleon with medical students, chart review, patient continues sad somewhat more depressed today, complains of not sleeping at all last night. While she denies suicidality she said she said some brief suicidal thoughts today. We will add Seroquel 50 mg at at bedtime Review of Systems All other systems reviewed negative except as stated in HPI Mental Status Examination Appearance: Appropriate Consciousness: Alert Orientation: x4 Motor Activity: Other (No motor abnormalities noted) Speech: Unremarkable Language: Adequate Fund of Knowledge: Adequate Attention and Concentration: Adequate Memory: Unremarkable (Grossly intact on clinical exam) Mood: Sad (Lessening), Anxious (Lessening) Affect: Sad Thought Process & Associations: Intact, Logical, Linear Thought Content: Appropriate Hallucination Type: None Delusion Type: None Suicidal Ideation: Yes (Vague intermittent today) Suicidal Plan: No Suicidal Intention: No Homicidal Ideation: No Homicidal Plan: No Homicidal Intention: No Insight: Fair Judgment: Impulsive Assessment and Plan - Assessment (1) Bipolar affective disorder, depressed, moderate Code(s): F31.32 - Bipolar disorder, current episode depressed, moderate Status : Acute - Plan Plan: Patient continues depressed with some vague suicidal ideation complaining primarily of significant initial mid and late insomnia. We will add Seroquel 50 mg at at bedtime Justification for Continued Inpatient Stay: At this time patient would decompensate a place to the lower level of care Discharge Planning: To be determined Request Healthcare Surrogate/Guardian Advocate?: No
[2018-04-01] MEDS: clonazePAM 0.5 MG Tablet PO SCH (15:17)
[2018-04-01] MEDS: Acetaminophen 325 MG Tablet PO PRN (21:08)
[2018-04-01] MEDS: Mirtazapine 15 MG Tablet PO SCH (21:09)
[2018-04-01] MEDS: QUEtiapine 25 MG Tablet PO SCH (21:55)
[2018-04-02] MEDS: buPROPion 150 MG XL 24 HR Tablet PO SCH (10:15)
[2018-04-02] MEDS: clonazePAM 1 MG Tablet PO SCH ×2 (10:16→21:54)
[2018-04-02] MEDS: clonazePAM 0.5 MG Tablet PO SCH (15:30)
[2018-04-02] MEDS: Acetaminophen 325 MG Tablet PO PRN ×2 (15:31→21:58)
--- NOTE | 2018-04-02 15:50 | P.PNPSY ---
Subjective Chief Complaint: Depression, suicidal ideation Remarks: Patient was seen and case discussed with nursing. Patient's chief complaint today is insomnia. We reviewed her medication choices and she prefers trazodone. Patient notes auditory hallucinations whispering her name. No paranoia was noted. She is social on the unit Mental Status Examination Appearance: Appropriate Consciousness: Alert Orientation: x4 Motor Activity: Other (No motor abnormalities noted) Speech: Unremarkable Language: Adequate Fund of Knowledge: Adequate Attention and Concentration: Adequate Memory: Unremarkable (Grossly intact on clinical exam) Mood: Sad (Lessening), Anxious (Lessening) Affect: Sad Thought Process & Associations: Intact, Logical, Linear Thought Content: Appropriate Hallucination Type: None Delusion Type: None Suicidal Ideation: No Suicidal Plan: No Suicidal Intention: No Homicidal Ideation: No Homicidal Plan: No Homicidal Intention: No Insight: Fair Judgment: Impulsive Assessment and Plan - Assessment (1) Bipolar affective disorder, depressed, moderate Code(s): F31.32 - Bipolar disorder, current episode depressed, moderate Status : Acute - Plan Plan: Continue current treatment plan Justification for Continued Inpatient Stay: Patient would decompensate in a less restrictive setting Request Healthcare Surrogate/Guardian Advocate?: No
[2018-04-02] MEDS ORDERED: traZODone 50 MG Tablet PO PRN (21:28)
[2018-04-02] MEDS: Mirtazapine 15 MG Tablet PO SCH (21:54)
[2018-04-02] MEDS: QUEtiapine 25 MG Tablet PO SCH (23:19)
[2018-04-03] MEDS: buPROPion 150 MG XL 24 HR Tablet PO SCH (08:54)
[2018-04-03] MEDS: clonazePAM 1 MG Tablet PO SCH ×2 (08:54→21:46)
--- NOTE | 2018-04-03 13:47 | P.PNPSY ---
Subjective Chief Complaint: Depression, suicidal ideation Remarks: Patient was seen and case discussed with nursing. Patient continues with her chief complaint of insomnia. She says she is starting to have some mild visual hallucinations, seeing spots is resolved. She notices herself being more irritable secondary to her sleep. However, per nursing she is behaving better and is less entitled. There is not any auditory hallucinations Mental Status Examination Appearance: Appropriate Consciousness: Alert Orientation: x4 Motor Activity: Other (No motor abnormalities noted) Speech: Unremarkable Language: Adequate Fund of Knowledge: Adequate Attention and Concentration: Adequate Memory: Unremarkable (Grossly intact on clinical exam) Mood: Sad (Lessening), Anxious (Lessening) Affect: Sad Thought Process & Associations: Intact, Logical, Linear Thought Content: Appropriate Hallucination Type: Visual Delusion Type: None Suicidal Ideation: No Suicidal Plan: No Suicidal Intention: No Homicidal Ideation: No Homicidal Plan: No Homicidal Intention: No Insight: Fair Judgment: Impulsive Assessment and Plan - Assessment (1) Bipolar affective disorder, depressed, moderate Code(s): F31.32 - Bipolar disorder, current episode depressed, moderate Status : Acute - Plan Plan: Increase trazodone to 150 mg p.o. nightly and increase Remeron to 30 mg p.o. nightly Justification for Continued Inpatient Stay: Patient would decompensate in a less restrictive setting Request Healthcare Surrogate/Guardian Advocate?: No
[2018-04-03] MEDS: clonazePAM 0.5 MG Tablet PO SCH (16:16)
[2018-04-03] MEDS: Mirtazapine 15 MG Tablet PO SCH (21:45)
[2018-04-03] MEDS: traZODone 50 MG Tablet PO PRN (21:47)
[2018-04-03] MEDS: QUEtiapine 25 MG Tablet PO SCH (21:51)
[2018-04-03] MEDS: Acetaminophen 325 MG Tablet PO PRN (23:16)
[2018-04-03] MEDS: Aluminum/Magnesium/Simethacone Susp 30 ML UDC PO PRN (23:21)
[2018-04-04] MEDS: clonazePAM 1 MG Tablet PO SCH ×2 (08:56→21:34)
[2018-04-04] MEDS: buPROPion 150 MG XL 24 HR Tablet PO SCH (08:56)
[2018-04-04] MEDS: Acetaminophen 325 MG Tablet PO PRN ×2 (15:14→21:34)
[2018-04-04] MEDS: clonazePAM 0.5 MG Tablet PO SCH (15:15)
--- NOTE | 2018-04-04 15:49 | P.PNPSY ---
Subjective Chief Complaint: Depression, suicidal ideation Remarks: Patient seen for follow, chart reviewed. Discussion nursing staff reported the patient had no behavioral disturbances, slept well last evening. Patient was found lying hospital bed noted B, cooperative. Patient states that she has slept for the first time last night he was feeling better although she states she is continuing to having some intermittent suicide ideations over the weekend last time being yesterday morning but none today. Patient states that she had been continuing feeling depressed and anxious over the weekend but hopeful that she will continue to improve. Patient plans on staying with her daughter upon discharge for continued support. Patient denies any SI or HI, AVH or delusions at this time. Review of Systems All other systems reviewed negative except as stated in HPI Mental Status Examination Appearance: Appropriate Consciousness: Alert Orientation: x4 Motor Activity: Other (No motor abnormalities noted) Speech: Unremarkable Language: Adequate Fund of Knowledge: Adequate Attention and Concentration: Adequate Memory: Unremarkable (Grossly intact on clinical exam) Mood: Appropriate Affect: Sad (lessening) Thought Process & Associations: Intact, Logical, Linear Thought Content: Appropriate Hallucination Type: None Delusion Type: None Suicidal Ideation: No Suicidal Plan: No Suicidal Intention: No Homicidal Ideation: No Homicidal Plan: No Homicidal Intention: No Insight: Fair Judgment: Impulsive Assessment and Plan - Assessment (1) Bipolar affective disorder, depressed, moderate Code(s): F31.32 - Bipolar disorder, current episode depressed, moderate Status : Acute - Plan Plan: Patient slept well last evening, has also improved her mood denying any suicide ideations today. Patient would likely be for discharge tomorrow if mood has remains consistent as well as continued denial of suicide ideations. We will continue current treatment. We will continue to monitor mood and behavior. Discharge planning in progress. Justification for Continued Inpatient Stay: At risk for further decompensation if at lower level of care Request Healthcare Surrogate/Guardian Advocate?: No
[2018-04-04] MEDS: traZODone 50 MG Tablet PO PRN (21:34)
[2018-04-04] MEDS: Mirtazapine 15 MG Tablet PO SCH (21:34)
[2018-04-04] MEDS: QUEtiapine 25 MG Tablet PO SCH (22:26)
[2018-04-05] MEDS: buPROPion 150 MG XL 24 HR Tablet PO SCH (10:05)
[2018-04-05] MEDS: clonazePAM 1 MG Tablet PO SCH (10:05)
--- NOTE | 2018-04-05 15:49 | P.DSPSY ---
Psychiatry Discharge Summary Inpatient Psychiatric care?: Yes Advance Directives: No Mental Health Advance Directive: No Health Care Proxy: No - Admission Admission Date: March 25, 2018 18:06 - Admission Diagnosis (1) Bipolar affective disorder, depressed, moderate Code(s): F31.32 - Bipolar disorder, current episode depressed, moderate Brief History: Ms. Alaniz is a 52-year-old female with a reported history of anxiety, depression, PTSD, ADHD, bipolar disorder who presents under a Koehler act by [place] [employer] alleging that the patient sent text messages of a suicidal nature. Patient was seen by the psychiatric nurse practitioner in the ED. Reviewing the electronic medical record, I see no previous psychiatric contact within our system. Patient seen and examined with nurse, Kasi. Chart reviewed. Case discussed with nursing staff. Per nursing staff, the patient was quite agitated and threatening to armando overnight because she did not receive her reported home dose of Klonopin 1mg TID. I have reviewed the [employer] database, and I note that the patient has been receiving Klonopin 1mg BID. On my examination today, patient starts off our conversation by saying that she gets Klonopin 1mg TID. When I indicate that I have consulted the controlled substances database, she quickly changes her narrative and agrees that she has been taking Klonopin 1mg BID. She denies overuse of this medication. She reports that she has been feeling depressed for several days with suicidal ideation to either overdose or shoot herself with a gun. She says that she has purposely had her firearms removed from the home and also has removed her medications. She notes that she has been off of her psychotropic medications for several weeks. She says that the lithium in particular was problematic because she believes that it was causing weight gain and thyroid abnormalities. She remains depressed now and endorses ongoing suicidal ideations saying that she has "different plans. There is 1,000,001 ways to ." She contracts for safety on the inpatient unit however. She endorses some hopeless and worthless feelings. She does report a significant trauma history and reports that she has heard her name being called in the past and also experiences traumatic nightmares and hypervigilance. No audiovisual hallucinations. No delusions. No hypomanic or manic symptoms presently. Patient does report that she has panic symptoms "all the time" including dyspnea, feeling like she is having a heart attack and feeling like she is going to . She does not presently appear at all anxious. Cluster B personality traits are noted. Remainder of the psychiatric ROS is negative. No acute physical complaints. Past psychiatric history: The patient reports previous diagnoses as noted above. She has been seeing Dr. Shah for several months. She denies any history of psychiatric admissions. Denies any history of suicide attempts. Denies any history of nonsuicidal self-injurious behavior. Denies any history of violent behavior. Family history: The patient reports a family history of anxiety disorder, bipolar disorder and depression. She reports that 2 members of her family have completed suicide. Chemical dependency history: The patient denies any abuse of drugs or alcohol. Social history: The patient reports that she lives alone. She has 3 grown children. She has 6 grandchildren. She is . 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 She denies any legal issues herself. Denies any access to guns or firearms at the present time. She endorses a history of childhood, and police trauma. She endorses scientologist beliefs. Past medical history: The patient denies any ongoing medical issues. Tobacco Use In Past 30 Days: Yes (PPD) How Often Do You Have a Drink Containing Alcohol: Never Hospital Course: Ms. Alaniz is a 52-year-old female with a reported history of anxiety, depression, PTSD, ADHD, bipolar disorder who presents under a Koehler act by [place] [employer] alleging that the patient sent text messages of a suicidal nature which patient was admitted to the inpatient psychiatry unit for further evaluation and management. Patient was started on lurasidone and titrated to 60mg daily, clonazepam 1mgAM/0.5mg PM/1mg HS, bupropion XL 300mg daily, trazodone 150mg HS, mirtazapine 30mg HS along with continued medications for chronic medical illnesses. Patient was admitted to a locked, inpatient psychiatric unit. Appropriate precautions were in place throughout patient's hospital stay. Patient was seen and examined on the unit by psychiatry. Psychotropic medications were adjusted. There was no evidence of any suicidality or homicidality on the inpatient unit although had endorsed this initially which decreased throughout the admission and denied any suicidal ideations toward end of admission. Patient's mood improved with the benefit of psychopharmacologic treatment and had no behavioral disturbance since admission. Counselor has arranged for follow up appointments for continuity of care. On the day of discharge: Patient seen and examined; chart reviewed. Case discussed with nurse and counselor. No behavioral issues overnight. On my examination today, the patient is agreeable to a discharge daughters residence and daughter confirmed having no safety concerns with patient being discharged to her home. Patient denies any suicidal or homicidal ideation, intent or plan on direct questioning and contracts for safety. I can elicit no mood symptoms and denies any audiovisual hallucinations. No delusional material verbalized today. Denies any side effects from medications and has an understanding of medication regimen and indication. No physical complaints. Suicide and violence risk assessment on day of discharge both suggest lower imminent risk, and the patient's level of function is adequate for planned level of outpatient care. Patient has maximized benefit from this inpatient psychiatric hospital stay and will be discharged with follow-up as arranged by counselor. Patient advised to return to psychiatric emergency room for any concerning psychiatric symptoms. Patient agrees with plan. - Discharge Discharge Date: 04/05/18 Discharge Disposition: Home - Discharge Instructions Discharge Diet: Regular Diet Activities You Can Perform: Regular- No Restrictions - Discharge Time > 30 minutes Mental Status Examination Appearance: Appropriate Consciousness: Alert Orientation: x4 Motor Activity: Other (No motor abnormalities noted) Speech: Unremarkable Language: Adequate Fund of Knowledge: Adequate Attention and Concentration: Adequate Memory: Unremarkable (Grossly intact on clinical exam) Mood: Appropriate Affect: Appropriate Thought Process & Associations: Intact, Logical, Goal directed, Linear Thought Content: Appropriate Hallucination Type: None Delusion Type: None Suicidal Ideation: No Suicidal Plan: No Suicidal Intention: No Homicidal Ideation: No Homicidal Plan: No Homicidal Intention: No Insight: Adequate Judgment: Adequate Discharge/Advance Care Plan - Results Vital Signs: Last Vital Signs Temp 98 F 04/05/18 06:00 Pulse 73 04/05/18 06:00 Resp 17 04/05/18 08:00 BP 109/68 04/05/18 06:00 Pulse Ox 99 04/05/18 06:00 Lab Results: Laboratory Results Hemoglobin A1c 5.0 % (4.3-6.0) 03/26/18 11:03 Triglycerides 268 mg/dL (42-150) H 03/26/18 11:03 Cholesterol 173 mg/dL (120-200) 03/26/18 11:03 LDL Cholesterol, Calc 90 mg/dL (0-99) 03/26/18 11:03 HDL Cholesterol 29.3 mg/dL (40.0-60.0) L 03/26/18 11:03 TSH 2.210 uIU/mL (0.358-3.740) 03/25/18 05:00 [place] Less than 0.1 meq/L (0.5-1.5) L 03/25/18 05:00 Summary of Procedures: none Pending Results: None - Medications Number of antipsychotic medications at discharge: 1 - Discharge Care Plan Goals to Promote Your Health: * To prevent worsening of your condition and complications * To maintain your health at the optimal level Directions to Meet Your Goals: Take your medications as prescribed Follow your dietary instruction Follow activity as directed Keep your appointments as scheduled Take your immunizations and boosters as scheduled If your symptoms worsen call your PCP, if no PCP go to Urgent Care Center or Emergency Room For 29/03 questions related to your inpatient stay or results of tests pending at discharge, please contact Dr. Asael Ortez MD at Smoking is Dangerous to Your Health. Avoid second hand smoking
== END 2018-04-05 13:40 | disposition home or self-care (01) ==
LOC: NEPD 04:44 → NEDA 18:06 → H260 20:08
PROVIDERS: ADMIT Student in an Organized Health Care Education/Training Program; ATTEND Student in an Organized Health Care Education/Training Program
DX: F41.9 Anxiety disorder, unspecified; F31.32 Bipolar disorder, current episode depressed, moderate; F43.10 Post-traumatic stress disorder, unspecified; F90.9 Attention-deficit hyperactivity disorder, unspecified type; F17.210 Nicotine dependence, cigarettes, uncomplicated